=== PATIENT | male | born 1940 | race Caucasian/White ===

== ENCOUNTER 2016-08-28 18:04 | Emergency (ER) | payer MEDICARE ==
[2016-08-28] MEDS ORDERED: Albuterol/Ipratropium NEB.SOL* Albuterol 2.5 MG/Ipratropium 0.5 MG 3 ML INH ONE (20:23)
[2016-08-28 20:49] LABS: Albumin 3.6 g/dL (3.2-5.2); Calcium 9.5 mg/dL (8.6-10.3); EGFR African American 92.9 (>60); EGFR Non-African American 72.3 (>60); Globulin 3.4 g/dL (2-4); Potassium 3.9 mmol/L (3.5-5.0); Total Bilirubin 0.8 mg/dL (0.2-1.0)
[2016-08-28 20:50] LABS: Comments Flag Yes; Hematocrit 41 % (42-52); Hemoglobin 13.4 g/dl (14.0-18.0); Mean Corpuscular HGB Conc 33 g/dl (31-36); Mean Corpuscular Hemoglobin 32 pg (27-31); Mean Corpuscular Volume 98 fL (80-94); Red Blood Count 4.17 10^6/ul (4.0-5.4); Red Cell Distribution Width 14 % (10.5-15); Troponin I 0.01 ng/mL (<0.04)
[2016-08-28 20:51] LABS: Add Diff/Slide Review? Manual Diff Added
[2016-08-28] MEDS ORDERED: Iohexol 350* (CONTRAST) 500 ML MDV IV ONE (20:53)
[2016-08-28 21:23] LABS: Eosinophils % 2 % (0-6); Immature Granulocytes 2 % (0-9); Myelocytes % 1 % (0-1); Neutrophil % 80 % (38-83); Reactive Lymph % 1 % (0-6)
[2016-08-28 21:25] LABS: RBC Morphology Normal (Normal)
--- NOTE | 2016-08-28 21:25 | RAD ---
HISTORY: Shortness of breath COMPARISONS: May 08, 2015 VIEWS: 4: Frontal dual-energy and lateral views of the chest. FINDINGS: CARDIOMEDIASTINAL SILHOUETTE: The cardiomediastinal silhouette is normal. CANDY: The candy are normal. PLEURA: The costophrenic angles are sharp. No pleural abnormalities are noted. LUNG PARENCHYMA: There is hyperinflation with flattening of the diaphragm and expansion of the AP diameter of the chest. There is patchy alveolar opacification of the lung bases bilaterally ABDOMEN: The upper abdomen is clear. There is no subphrenic gas. BONES AND SOFT TISSUES: No bone or soft tissue abnormalities are noted. OTHER: None. IMPRESSION: 1. COPD. 2. PATCHY AIRSPACE DISEASE OF THE LUNG BASES BILATERALLY. RECOMMEND FOLLOW-UP UNTIL RESOLUTION TO EXCLUDE UNDERLYING PULMONARY PARENCHYMAL PATHOLOGY
[2016-08-28 21:40] LABS: White Blood Count 14.6 10^3/ul (3.5-10.8)
--- NOTE | 2016-08-28 21:59 | RAD ---
HISTORY: Shortness of breath, hemoptysis COMPARISONS: None TECHNIQUE: Multiple contiguous axial CT scans of the chest were obtained after the administration of nonionic intravenous contrast, timed to the pulmonary arterial phase of contrast enhancement.. Coronal and sagittal multiplanar reformations are also submitted for review. FINDINGS: NECK AND THYROID: The lower neck and thyroid are unremarkable. CHEST WALL: There is no lower cervical, axillary, or supraclavicular lymphadenopathy by size criteria. HEART AND PERICARDIUM: There is a small pericardial effusion AORTA AND PULMONARY VASCULATURE: There is no pulmonary arterial filling defect to suggest pulmonary embolism. There is no linear filling defect within the aorta to suggest aortic dissection. MEDIASTINUM: There is no mediastinal lymphadenopathy by size criteria. CANDY: There is no hilar lymphadenopathy by size criteria. AIRWAY AND ESOPHAGUS: The airway is unremarkable, without endobronchial filling defect. The esophagus is grossly normal. LUNG PARENCHYMA: There is diffuse centrilobular edematous change. There is patchy groundglass and solid nodular opacification of the lung bases bilaterally, measuring up to 1.9 cm in size. The largest nodule is noted in the left lower lobe best seen on axial image 215 of 290, of series 4. PLEURA: No pleural abnormalities are noted. UPPER ABDOMEN: A left renal cyst is noted. There is an aortic stent graft with atherosclerosis of the abdominal aorta BONES AND SOFT TISSUES: Mild degenerative changes are noted OTHER: None. IMPRESSION: 1. NO PULMONARY ARTERIAL FILLING DEFECT TO SUGGEST PULMONARY WAS. 2. EMPHYSEMA WITH MULTIPLE PULMONARY PARENCHYMAL NODULES MEASURING UP TO 1.9 CM IN SIZE. THE RECOMMENDATIONS FOR FOLLOWUP AND MANAGEMENT OF AN INCIDENTALLY DETECTED PULMONARY NODULE GREATER THAN 8 MM IN SIZE, IN A PATIENT WITHOUT A HISTORY OF MALIGNANCY, INCLUDE FOLLOWUP CT AT 3, 9, AND 24 MONTHS, DYNAMIC CONTRAST-ENHANCED CT, PET-CT, AND/OR BIOPSY. NOTES: SIZE = AVERAGE LENGTH AND WIDTH; NODULES WITH A GROUND GLASS COMPONENT MAY REQUIRE LONGER FOLLOW UP TO EXCLUDE INDOLENT ADENOCARCINOMA.
[2016-08-28] MEDS ORDERED: predniSONE TAB* 20 MG PO ONE (22:44)
[2016-08-28] MEDS: NS 0.9% 1000 ML* 1,000 ML IV ONE ×2 (22:56→23:00)
[2016-08-28 23:32] VITALS: BP 127/52
--- NOTE | 2016-08-28 23:43 | ED ---
Jose Arreaga Benjamin, scribed for Laure Ann MD on 08/28/16 at 2029 . Shortness of Breath - HPI Summary HPI Summary: 76yo male c/o SOB for a few days. Pt was recently dxed with PNA and since then has been coughing and having SOB. Pt also states noticing little spot of brown blood in his cough. Pt is still able to swallow food. Denies fever. Pt admits feeling fine otherwise. Former smoker, has COPD and is on Oxygen at home. On Plavix. Pt is from out of the area. No Hx of [place] or CVA but had AAA 6-7 years ago. Pt is on2L O2 via [place] overnight. - History of Current Complaint Chief Complaint: EDShortnessOfBreath Time Seen by Provider: 08/28/16 19:17 Hx Obtained From: Patient Onset/Duration: Gradual Onset, Lasting Days - for few days now, Still Present Current Severity: Mild Dyspnea At: Rest Aggrevating Factors: Nothing Alleviating Factors: Nothing Associated Signs & Symptoms: Cough (Bloody Sputum) - Allergy/Home Medications Allergies/Adverse Reactions: Allergies Allergy/AdvReac Type Severity Reaction Status Date / Time No Known Allergies Allergy Verified 11/05/15 19:00 PMH/Surg Hx/FS Hx/Imm Hx Previously Healthy: No Cardiovascular History: Reports: Hx Hypercholesterolemia, Hx Hypertension, Hx Peripheral Vascular Disease Comment Only: Other Cardiovascular Problems/Disorders - AAA Respiratory History: Reports: Hx Chronic Obstructive Pulmonary Disease (COPD), Hx Pneumonia GI History: Reports: Other GI Disorders - constipation with surgery History: Reports: Hx Acute Renal Failure - after bowel surgery Sensory History: Reports: Hx Contacts or Glasses - reading Opthamlomology History: Reports: Hx Contacts or Glasses - reading - Surgical History Surgery Procedure, Year, and Place: GI, unspecified Infectious Disease History: No Infectious Disease History: Denies: Traveled Outside the [place] in Last 30 Days - Family History Known Family History: Negative: Cardiac Disease, Hypertension, Diabetes - Social History Occupation: Retired Lives: Alone Alcohol Use: Rare Substance Use Type: Reports: None Smoking Status (MU): Former Smoker Amount Used/How Often: quite 8-9 months ago Review of Systems Constitutional: Negative Negative: Fever, Skin Diaphoresis Eyes: Negative ENT: Negative Negative: Chest Pain Positive: Shortness Of Breath, Cough - with brown blood spot Gastrointestinal: Negative Negative: Abdominal Pain Genitourinary: Negative Musculoskeletal: Negative Skin: Negative Neurological: Negative Psychological: Normal All Other Systems Reviewed And Are Negative: Yes Physical Exam Triage Information Reviewed: Yes Vital Signs On Initial Exam: Initial Vitals Temp Pulse Resp BP Pulse Ox 99.1 F 93 22 128/67 90 08/28/16 18:12 08/28/16 18:12 08/28/16 18:12 08/28/16 18:12 08/28/16 18:12 Vital Signs Reviewed: Yes Appearance: Positive: Well-Appearing, No Pain Distress Skin: Positive: Warm, Skin Color Reflects Adequate Perfusion, Dry Head/Face: Positive: Normal Head/Face Inspection Eyes: Positive: EOMI, YOON ENT: Positive: Pharynx normal, TMs normal Neck: Positive: Supple, Nontender Respiratory/Lung Sounds: Positive: Clear to Auscultation, Breath Sounds Present. Negative: Rales, Rhonchi Cardiovascular: Positive: RRR, Pulses are Symmetrical in both Upper and Lower Extremities. Negative: Murmur Abdomen Description: Positive: Nontender, Soft. Negative: Distended, Guarding Bowel Sounds: Positive: Present Musculoskeletal: Positive: Strength/ROM Intact Neurological: Positive: Sensory/Motor Intact, Alert, Oriented to Person Place, Time, CN Intact II-III Psychiatric: Positive: Affect/Mood Appropriate - Aarti Coma Scale Coma Scale Total: 15 Diagnostics - Vital Signs Vital Signs Temp Pulse Resp BP Pulse Ox 08/28/16 19:16 98 F 87 16 151/65 94 08/28/16 18:12 99.1 F 93 22 128/67 90 - Laboratory Lab Results: Lab Results 08/28/16 08/28/16 08/28/16 Range/Units 20:25 20:25 20:45 WBC 14.6 H (3.5-10.8) 10^3/ul RBC 4.17 (4.0-5.4) 10^6/ul Hgb 13.4 L (14.0-18.0) g/dl Hct 41 L (42-52) % MCV 98 H (80-94) fL MCH 32 H (27-31) pg MCHC 33 (31-36) g/dl RDW 14 (10.5-15) % Plt Count 270 (150-450) 10^3/ul MPV Not Reportable Immature Gran % (Auto) 2 (0-9) % Absolute Neuts (auto) 12.0 H (1.5-7.7) 10^3/ul Absolute Lymphs (auto) 1.8 (1.0-4.8) 10^3/ul Absolute Monos (auto) 0.6 (0-0.8) 10^3/ul Absolute Eos (auto) 0.3 (0-0.6) 10^3/ul Absolute Basos (auto) 0 (0-0.2) 10^3/ul Absolute Nucleated RBC 0 10^3/ul Neutrophils % 80 (38-83) % Band Neutrophils % 1 (0-8) % Lymphocytes % 11 L (25-47) % Reactive Lymphs % 1 (0-6) % Monocytes % 4 (0-13) % Eosinophils % 2 (0-6) % Myelocytes % 1 (0-1) % Platelet Morphology Normal RBC Morphology Normal (Normal) Sodium 135 (133-145) mmol/L Potassium 3.9 (3.5-5.0) mmol/L Chloride 101 (101-111) mmol/L Carbon Dioxide 27 (22-32) mmol/L Anion Gap 7 (2-11) mmol/L BUN 17 (6-24) mg/dL Creatinine 1.00 (0.67-1.17) mg/dL Est GFR ( Amer) 92.9 (>60) Est GFR (Non-Af Amer) 72.3 (>60) BUN/Creatinine Ratio 17.0 (8-20) Glucose 109 H (70-100) mg/dL Lactic Acid 0.9 (0.5-2.0) mmol/L Calcium 9.5 (8.6-10.3) mg/dL Total Bilirubin 0.80 (0.2-1.0) mg/dL AST 25 (13-39) U/L ALT 29 (7-52) U/L Alkaline Phosphatase 75 (34-104) U/L Troponin I 0.01 (<0.04) ng/mL Total Protein 7.0 (6.4-8.9) g/dL Albumin 3.6 (3.2-5.2) g/dL Globulin 3.4 (2-4) g/dL Albumin/Globulin Ratio 1.1 (1-3) Result Diagrams: 08/28/16 20:25 08/28/16 20:25 Lab Statement: Any lab studies that have been ordered have been reviewed, and results considered in the medical decision making process. - Radiology CXR Xray Interpretation: Positive (See Comments) - IMPRESSION: 1. COPD. 2. PATCHY AIRSPACE DISEASE OF THE LUNG BASES BILATERALLY. RECOMMEND FOLLOW-UP UNTIL RESOLUTION TO EXCLUDE UNDERLYING PULMONARY PARENCHYMAL PATHOLOGY Radiology Interpretation Completed By: Radiologist - CT CTA Chest CT Interpretation: No Acute Changes - IMPRESSION: 1. NO PULMONARY ARTERIAL FILLING DEFECT TO SUGGEST PULMONARY WAS. 2. EMPHYSEMA WITH MULTIPLE PULMONARY PARENCHYMAL NODULES MEASURING UP TO 1.9 CM IN SIZE. THE RECOMMENDATIONS FOR FOLLOWUP AND MANAGEMENT OF AN INCIDENTALLY DETECTED PULMONARY NODULE GREATER THAN 8 MM IN SIZE, IN A PATIENT WITHOUT A HISTORY OF MALIGNANCY, INCLUDE FOLLOWUP CT AT 3, 9, AND 24 MONTHS, DYNAMIC CONTRAST-ENHANCED CT, PET-CT, AND/ OR BIOPSY. NOTES: SIZE = AVERAGE LENGTH AND WIDTH; NODULES WITH A GROUND GLASS COMPONENT MAY REQUIRE LONGER FOLLOW UP TO EXCLUDE INDOLENT ADENOCARCINOMA. CT Interpretation Completed By: Radiologist Re-Evaluation - Re-Evaluation First Eval Re-Evaluation Time: 22:41 - discussed lab and imaging results with the pt. Course/Dx - Course Assessment/Plan: 76 yo male visiting his sister from [place], went to [place] a few days ago with sob but started noticing what he though might be spots of blood in expectorant, CTA neg for PE but does show multiple pulmonary nodules ( pt given followup directions from printed sheet) pt was already on doxy and augmentin and was told to continue also started on prednisone pt will also up his 02 to 3L as it gives him good relief told to return if sxms are not better in 1-3 days - Diagnoses Provider Diagnoses: COPD exacerbation, Pulmonary nodule Discharge - Discharge Plan Condition: Stable Disposition: HOME Prescriptions: predniSONE TAB* [Deltasone TAB*] 60 mg PO DAILY #12 tab Patient Education Materials: COPD (Chronic Obstructive Pulmonary Disease) (ED) , Pulmonary Nodules (ED) Referrals: No Primary Care Phys,NOPCP [Primary Care Provider] - The documentation as recorded by the Jose duffy Benjamin accurately reflects the service I personally performed and the decisions made by me, Laure Ann MD.
== END 2016-08-28 23:33 | disposition home or self-care (01) ==
LOC: ED 18:04
DX: J44.1 Chronic obstructive pulmonary disease with (acute) exacerbation (principal); R91.1 Solitary pulmonary nodule; R06.02 Shortness of breath; R05 Cough; Z87.891 Personal history of nicotine dependence
CPT/HCPCS: 36415; 71020; 71275; 80053; 83605; 84484; 85025; 87040; 94640; 96374; 99283; A9270-GY; J7512; Q9967